=== PATIENT | female | born 1960 | race Caucasian/White ===

== ENCOUNTER → 2023-07-13 09:05 | Outpatient (REF) | payer OTHER, SELFPAY | LOC: MRI 3T 09:05 | PROVIDERS: ATTENDING PHYSICIAN Physical Medicine & Rehabilitation; FAMILY PHYSICIAN Student in an Organized Health Care Education/Training Program | DX: M23.91 Unspecified internal derangement of right knee (principal) | CPT/HCPCS: 73721 ==